=== PATIENT | male | born 1990 | race Two or more races ===

== ENCOUNTER 2017-02-20 01:14 | Emergency (ER) | payer SELFPAY ==
[~2017-02-20] VITALS: Ht 180.3 cm; Wt 72.6 kg
[2017-02-20 01:36] VITALS: BP 137/81
[2017-02-20] MEDS ORDERED: cefTRIAXone SOD 1,000 MG VL IM ONE (03:45)
[2017-02-20] MEDS ORDERED: IBUPROFEN 600 MG TAB PO ONE (03:45)
== END 2017-02-20 04:05 | disposition home or self-care (01) ==
LOC: ER 01:18
DX: S86.911A Strain of unspecified muscle(s) and tendon(s) at lower leg level, right leg, initial encounter (principal); L03.115 Cellulitis of right lower limb; F17.210 Nicotine dependence, cigarettes, uncomplicated; V49.49XA Driver injured in collision with other motor vehicles in traffic accident, initial encounter; Y93.89 Activity, other specified; Y99.8 Other external cause status; Y92.410 Unspecified street and highway as the place of occurrence of the external cause
CPT/HCPCS: 73562; 96372; 99284; J0696